=== PATIENT | male | born 1970 | race Caucasian/White ===

== ENCOUNTER 2024-11-13 19:12 | Emergency (ER) | payer BC ==
[~2024-11-13 19:12] MED LIST: Iopamidol-370 76% 500 ML MDV (1 ML CHARGE) ONE
[2024-11-13 19:36] LABS: #Basophils 0.06 10x3/uL (0.0-0.2); #Eosinophils 0.18 10x3/uL (0.0-0.7); #Monocytes 0.82 10x3/uL (0.11-0.59); #Neutrophils 6.57 10x3/uL (1.40-6.50); %Basophils 0.6 % (0.0-1.0); %Eosinophils 1.8 % (0.0-10.0); %Lymphocytes 24.5 % (21.0-51.0); %Monocytes 8.1 % (0.0-10.0); %Neutrophils 64.7 % (42.0-75.0); Hematocrit 43.0 % (42.0-52.0); Hemoglobin 14.4 g/dL (14.0-18.0); Mean Corpuscular Hemoglobin 29.8 pg (27.0-31.0); Mean Corpuscular Volume 88.8 fL (78.0-98.0); Platelet Count 187 10x3/uL (130-400); Red Blood Cell (RBC) Count 4.84 mill/uL (4.70-6.10); White Blood Cell (WBC) Count 10.15 10x3/uL (4.8-10.8)
[2024-11-13 19:53] LABS: Lipase 39 U/L (8-78); Magnesium 1.9 mg/dL (1.6-2.6)
[2024-11-13 19:54] LABS: Acetaminophen Less than 10 mcg/mL (Less than 10); Salicylate Less than 8.0 mg/dL (Less than 8.0)
[2024-11-13 19:55] LABS: ALT (SGPT) 28 U/L (Less than 45); AST (SGOT) 30 U/L (11-34); Albumin 3.9 g/dL (3.1-4.5); Alkaline Phosphatase 160 U/L (40-110); Anion Gap 16 mmol/L (10-20); BUN (Urea Nitrogen) 16 mg/dL (8.4-25.7); Bilirubin, Total 0.8 mg/dL (0.3-1.2); Calc. Creatinine Clearance 0 mL/min (70-130); Calcium 9.0 mg/dL (7.8-10.44); Carbon Dioxide 21 mmol/L (22-29); Chloride 112 mmol/L (98-107); Globulin 2.8 g/dL (2.4-3.5); Glucose 106 mg/dL (70-105); Potassium 3.6 mmol/L (3.5-5.1); Sodium 145 mmol/L (136-145)
== END 2024-11-13 21:06 | disposition home or self-care (01) ==
LOC: ERS 19:12
DX: E86.0 Dehydration (principal); M54.2 Cervicalgia; R07.9 Chest pain, unspecified; R10.9 Unspecified abdominal pain; V89.2XXA Person injured in unspecified motor-vehicle accident, traffic, initial encounter
CPT/HCPCS: 36415; 70450; 71260; 72125; 74177; 80053; 80307; 83605; 83690; 83735; 84484; 85025; 93005; 96374; J3010; Q9967